=== PATIENT | female | born 1955 | race Two or more races ===

== ENCOUNTER 2024-06-27 08:43 | Outpatient (CLI) | payer OTHER ==
[~2024-06-27 08:43] MED LIST: COZAAR100 MG; TOPROL XL25 MG
== END 2024-06-27 08:55 | disposition home or self-care (01) ==
LOC: MAMO-SONO 08:43
PROVIDERS: ATTEND Internal Medicine
DX: N64.4 Mastodynia (principal); R92.8 Other abnormal and inconclusive findings on diagnostic imaging of breast; M15.0 Primary generalized (osteo)arthritis; Z12.31 Encounter for screening mammogram for malignant neoplasm of breast

== ENCOUNTER 2024-06-27 11:42 | Outpatient (CLI) | payer OTHER | END 2024-06-27 11:43 | disposition home or self-care (01) | LOC: NUCLEAR 11:42 | PROVIDERS: ATTEND Internal Medicine | DX: M81.0 Age-related osteoporosis without current pathological fracture (principal); M85.80 Other specified disorders of bone density and structure, unspecified site ==